=== PATIENT | female | born 1985 | race American Indian/Alaskan Native ===

== ENCOUNTER 2020-11-03 17:11 | Outpatient (CLI) | payer OTHER ==
--- NOTE | 2020-11-03 18:26 | Ultrasound Report ---
ULTRASOUND BIOPHYSICAL PROFILE INDICATION / CLINICAL INFORMATION: well being. COMPARISON: None available. FINDINGS: BREATHING MOVEMENT = 2 GROSS BODY MOVEMENT = 2 TONE = 2 QUALITATIVE AMNIOTIC FLUID VOLUME = 2 TOTAL BIOPHYSICAL SCORE = 09/20 AMNIOTIC FLUID INDEX (cm) = 22.6 PRESENTATION: Cephalic. HEART RATE (beats per minute): 187 IMPRESSION: 1. biophysical profile = 09/20 Signer Name: Josué Floyd MD Signed: 11/03/2020 6:21 PM Workstation Name: [employer]
[2020-11-03 18:34] VITALS: BP 123/78
--- NOTE | 2020-11-03 18:35 | Ultrasound Report ---
ULTRASOUND BIOPHYSICAL PROFILE INDICATION / CLINICAL INFORMATION: well being. COMPARISON: None available. FINDINGS: BREATHING MOVEMENT = 2 GROSS BODY MOVEMENT = 2 TONE = 2 QUALITATIVE AMNIOTIC FLUID VOLUME = 2 TOTAL BIOPHYSICAL SCORE = 09/20 AMNIOTIC FLUID INDEX (cm) = 22.6 PRESENTATION: Cephalic. HEART RATE (beats per minute): 187 IMPRESSION: 1. biophysical profile = 09/20 Signer Name: Josué Floyd MD Signed: 11/03/2020 6:31 PM Workstation Name: [employer]
[2020-11-03 18:56] LABS: Bilirubin,Urine NEG (Negative); Blood,Urine NEG (Negative); Color,Urine Amber (Yellow); Mucus,Urine FEW /HPF
== END 2020-11-03 19:08 | disposition home or self-care (01) ==
LOC: TRG 17:11 → APU 17:13 → TRG 19:08
PROVIDERS: ATTEND Obstetrics & Gynecology
DX: Z34.93 Encounter for supervision of normal pregnancy, unspecified, third trimester (principal); Z3A.40 40 weeks gestation of pregnancy
CPT/HCPCS: 59025; 76815; 76819; 81001

== ENCOUNTER 2020-11-06 08:28 | Inpatient (IN) | payer OTHER ==
[2020-11-06] MEDS ORDERED: LACTATED RINGERS 1,000 ML IV ONE (08:48)
[2020-11-06] MEDS ORDERED: LIDOCAINE (2%) 20 MG/1 ML VIAL 20 ML MDV INFILTRATI NR (09:59)
[2020-11-06 10:25] LABS: Hematocrit 34.5 % (30.3-42.9); Hemoglobin 11.7 gm/dl (10.1-14.3); Mean Corpuscular HGB Conc 34 % (30-34); Mean Corpuscular Volume 90 fl (79-97); Platelet Count 197 K/mm3 (140-440); Red Blood Count 3.82 M/mm3 (3.65-5.03)
[2020-11-06] MEDS ORDERED: OXYTOCIN DRIP 30 UNITS/500 ML BAG IV SCH ×4 (11:00→16:00)
[2020-11-06] MEDS ORDERED: ePHEDrine SULFATE 50 MG/1 ML INJ IV PRN ×3 (11:00→21:16)
[2020-11-06] MEDS ORDERED: OXYTOCIN 10 UNIT/1 ML INJ IM PRN ×2 (11:00→15:19)
[2020-11-06] MEDS ORDERED: LOPERAMIDE 2 MG CAP PO PRN (11:00)
[2020-11-06] MEDS ORDERED: TERBUTALINE 1 MG/1 ML INJ SUB-Q PRN ×2 (11:00→15:19)
[2020-11-06] MEDS ORDERED: CARBOPROST TROMETHAMINE 250 MCG/1 ML INJ IM PRN (11:00)
[2020-11-06] MEDS ORDERED: miSOPROStol 200 MCG TAB PR PRN ×2 (11:30→15:19)
[2020-11-06] MEDS ORDERED: METHYLERGONOVINE MALEATE 0.2 MG/ML VIAL IM PRN ×2 (11:30→15:19)
[2020-11-06] MEDS ORDERED: fentaNYL 100 MCG/2 ML INJ IV PRN (11:30)
[2020-11-06] MEDS ORDERED: ACETAMINOPHEN 325 MG TAB PO PRN (11:30)
[2020-11-06] MEDS ORDERED: BUTORPHANOL 2 MG/1 ML INJ IV PRN (11:30)
[2020-11-06] MEDS ORDERED: MINERAL OIL 30 ML ORAL LIQD PO PRN ×2 (15:19→22:00)
[2020-11-06] MEDS ORDERED: LACTATED RINGERS 1,000 ML IV SCH (16:30)
[2020-11-06] MEDS: LACTATED RINGERS 1,000 ML IV SCH ×2 (17:00→21:53)
[2020-11-06] MEDS ORDERED: AMPICILLIN/NS 2 GM/100 ML 2 GM/100 ML BAG IV ONE (18:59)
--- NOTE | 2020-11-06 20:53 | History and Physical Report ---
History of Present Illness Date of examination: 11/06/20 Date of admission: 11/06/20 16:18 Chief complaint: ROM at 3am today History of present illness: by . 40+4 wks. Patient chose to try for a if possible. Past History Past Surgical History: section - Obstetrical History Expected Date of Delivery: 11/02/20 Actual Gestation: 40 Week(s) 4 Day(s) : 2 Medications and Allergies Allergies Allergy/AdvReac Type Severity Reaction Status Date / Time No Known Allergies Allergy Verified 11/06/20 08:45 Home Medications Medication Instructions Recorded Confirmed Last Taken Type No.137/Iron/Folic Acd 1 tab PO DAILY 11/06/20 11/06/20 11/05/20 History [[facility] Vit[facility] Tablet] Active Meds: Active Medications Acetaminophen (Acetaminophen 325 Mg Tab) 650 mg PO Q4H PRN PRN Reason: Pain, Mild (1-3) Butorphanol Tartrate (Butorphanol 2 Mg/1 Ml Inj) 1 mg IV Q2H PRN PRN Reason: Pain, Moderate(4-6) LABOR PAIN Carboprost Tromethamine (Carboprost Tromethamine 250 Mcg/1 Ml Inj) 250 mcg IM ONCE PRN PRN Reason: Uterine Bleeding Stop: 11/07/20 10:59 Ephedrine Sulfate (Ephedrine Sulfate 50 Mg/1 Ml Inj) 10 mg IV Q2M PRN PRN Reason: Hypotension Fentanyl (Fentanyl 100 Mcg/2 Ml Inj) 100 mcg IV Q2H PRN PRN Reason: Pain,Severe (7-10) LABOR PAIN Oxytocin/Sodium Chloride (Pitocin/Ns 30 Unit/500ml) 30 units in 500 mls @ 2 mls/hr IV TITR KRISTYN; Protocol Last Titration: 11/06/20 18:00 Dose: 4 ml/hr, 4 mls/hr Documented by: Lactated Ringer's (Lactated Ringers) 1,000 mls @ 125 mls/hr IV DIRECT KRISTYN Last Admin: 11/06/20 17:00 Dose: 125 mls/hr Documented by: Oxytocin/Sodium Chloride (Pitocin/Ns 30 Unit/500ml) 30 units in 500 mls @ 40 mls/hr IV TITR KRISTYN; Protocol Oxytocin/Sodium Chloride (Pitocin/Ns 30 Unit/500ml) 30 units in 500 mls @ 2 mls/hr IV TITR KRISTYN; Protocol Lactated Ringer's (Lactated Ringers) 1,000 mls @ 125 mls/hr IV DIRECT KRISTYN Oxytocin/Sodium Chloride (Pitocin/Ns 30 Unit/500ml) 30 units in 500 mls @ 40 mls/hr IV TITR KRISTYN; Protocol Ampicillin Sodium (Ampicillin/Ns 1 Gm/50 Ml) 1 gm in 50 mls @ 100 mls/hr IV Q4H KRISTYN; Protocol Loperamide HCl (Loperamide 2 Mg Cap) 2 mg PO ONCE PRN PRN Reason: give with Hemabate Stop: 11/07/20 10:59 Methylergonovine Maleate (Methylergonovine Maleate 0.2 Mg/Ml Vial) 0.2 mg IM ONCE PRN PRN Reason: Uterine Bleeding Stop: 11/07/20 11:29 Methylergonovine Maleate (Methylergonovine Maleate 0.2 Mg/Ml Vial) 0.2 mg IM ONCE PRN PRN Reason: Uterine Bleeding Mineral Oil (Mineral Oil 30 Ml Oral Liqd) 30 ml PO QHS PRN PRN Reason: Constipation Misoprostol (Misoprostol 200 Mcg Tab) 800 mcg NH ONCE PRN PRN Reason: Uterine Bleeding Stop: 11/07/20 11:29 Misoprostol (Misoprostol 200 Mcg Tab) 800 mcg NH ONCE PRN PRN Reason: Uterine Bleeding Oxytocin (Oxytocin 10 Unit/1 Ml Inj) 10 unit IM ONCE PRN PRN Reason: Uterine Bleeding Stop: 11/07/20 10:59 Oxytocin (Oxytocin 10 Unit/1 Ml Inj) 10 unit IM ONCE PRN PRN Reason: Uterine Bleeding Terbutaline Sulfate (Terbutaline 1 Mg/1 Ml Inj) 0.25 mg SUB-Q ONCE PRN PRN Reason: Hyperstimulation/Hypertonicity Review of Systems All systems: negative - Vital Signs Vital signs: Vital Signs Pulse Pulse Ox 120 H 97 11/06/20 08:40 11/06/20 08:40 Temp Pulse Resp BP Pulse Ox 98.1 F 73 20 135/79 98 11/06/20 17:56 11/06/20 20:46 11/06/20 17:56 11/06/20 20:40 11/06/20 20:46 - Physical Exam Lungs: Positive: Normal air movement Abdomen: Positive: normal appearance. Negative: tenderness Extremities: Positive: normal Deep Tendon Reflex Grade: Normal +2 - Obstetrical FHR: category 1 Cervical Dilatation: 0 Cervical Effacement Percentage: 40 station: 0-3 Uterine Contraction Pattern: Irregular Results Result Diagrams: 11/06/20 10:10 Abnormal lab results 11/06/20 Range/Units 08:56 Membranes Rupture Positive A (Negative) All other labs normal. Assessment and Plan - Patient Problems (1) Desires (vaginal after ) trial Current Visit: Yes Status: Acute Plan to address problem: , attemp, elective sections were fully discussed with patient during visits. Concerns of ruptured uterus and its sequelae werefully discussed. Patient was further reassured of comparative certainty of outcome of a repeat vs the risks and uncertainty of the process of . The ethical principle of autonomy, the patient was told, allowed me to do only as she consented to. She was unwavering in her choice to try for a . (2) Previous delivery affecting Current Visit: Yes Status: Acute (3) Post-term , 40-42 weeks of gestation Current Visit: Yes Status: Acute (4) SROM (spontaneous rupture of membranes) Current Visit: Yes Status: Acute (5) Delayed delivery after SROM (spontaneous rupture of membranes) Current Visit: Yes Status: Acute Plan to address problem: Started on ampicillin due to GBS status. On low dose pitocin. Will allow for contactions as long as there were no indications of or maternal intolerance, chorioamnionitis, emerging concerns re uterine scar integrity, non progression of labor.
[2020-11-06] MEDS ORDERED: NALOXONE 2 MG/2 ML INJ IV PRN (21:16)
--- NOTE | 2020-11-06 21:20 | Anesthesia Consultation ---
Anesthesia Consult and Med Hx Date of service: 11/06/20 - Airway Anesthetic Teeth Evaluation: Poor ROM Head & Neck: Adequate Mental/Hyoid Distance: Adequate Mallampati Class: Class II Intubation Access Assessment: Probably Good - Pulmonary Exam CTA: Yes - Cardiac Exam Cardiac Exam: RRR - Pre-Operative Health Status ASA Pre-Surgery Classification: ASA2 Proposed Anesthetic Plan: Epidural - Pulmonary Hx Smoking: No Hx Asthma: No Hx Respiratory Symptoms: No SOB: No COPD: No Home Oxygen Therapy: No Hx Pneumonia: No Hx Sleep Apnea: No - Cardiovascular System Hx Hypertension: No Hx Coronary Artery Disease: No Hx Heart Attack/AMI: No Hx Angina: No Hx Percutaneous Transluminal Coronary Angioplasty (PTCA): No Hx Cardia Arrhythmia: No Hx Pacemaker: No Hx Internal Defibrillator: No Hx Valvular Heart Disease: No Hx Heart Murmur: No Hx Peripheral Vascular Disease: No - Central Nervous System Hx Neuromuscular Disorder: No Hx Seizures: No CVA: No Hx Back Pain: Yes Hx Psychiatric Problems: No - Gastrointestinal Hx Ulcer: No Hx Gastroesophageal Reflux Disease: Yes - Endocrine Hx Renal Disease: No Hx End Stage Renal Disease: No Hx Cirrhosis: No Hx Liver Disease: No Hx Insulin Dependent Diabetes: No Hx Non-Insulin Dependent Diabetes: No Hx Thyroid Disease: No Hx Hypothyroidism: No Hx Hyperthyroidism: No - Hematic Hx Anemia: No Hx Sickle Cell Disease: No - Other Systems Hx Alcohol Use: No Hx Substance Use: No Hx Cancer: No Hx Obesity: Yes
[2020-11-06] MEDS: AMPICILLIN/NS 1 GM/50 ML 1 GM/50 ML BAG IV SCH (22:00)
[2020-11-06] MEDS: fentaNYL-BUPIV 2 MCG/ML-0.125% 200 MCG/100 ML BAG EPIDURAL SCH (22:00)
--- NOTE | 2020-11-06 22:22 | Progress Note ---
Labor Epidural - Labor Epidural Start Time: 21:29 Stop Time: 21:43 Performed by:: AYLA MILLS Procedure: Patient is requesting a laboring epidural for laboring pain. Patient IDed, H&P reviewed, all questions and concerns were answered, and consent was signed. Timeout was performed at bedside. Patient in sitting position. Sterile prep and drape was performed. [3] ml of 1% lidocaine skin wheal at L[3]- L [4]. 18- gauge [place] epidural needle was advanced to loss of resistance with saline technique 7cm. Negative CSF negative blood. Epidural catheter advanced to [10] centimeters. [NEGATIVE] Aspiration [NEGATIVE] test dose. Sterile dressing applied. Patient tolerated procedure.
[2020-11-07] MEDS: AMPICILLIN/NS 1 GM/50 ML 1 GM/50 ML BAG IV SCH ×3 (02:50→09:43)
[2020-11-07] MEDS: LACTATED RINGERS 1,000 ML IV SCH (06:14)
[2020-11-07] MEDS: fentaNYL-BUPIV 2 MCG/ML-0.125% 200 MCG/100 ML BAG EPIDURAL SCH (10:29)
--- NOTE | 2020-11-07 11:57 | Event Note ---
Date: 11/07/20 Patient stable. heart tracing showing some variability. Normal vulva vagina. Cervix 80% moderate to soft consistency. Os 2cm. Station 0- 1. Tinge of olive green noted in amni fluid.
[2020-11-07] MEDS ORDERED: BICITRA ORAL LIQD 30ML PO ONE (12:42)
[2020-11-07] MEDS ORDERED: METOCLOPRAMIDE 10 MG/2 ML INJ IV ONE (12:42)
[2020-11-07] MEDS ORDERED: FAMOTIDINE 20 MG/2 ML INJ IV ONE (12:42)
[2020-11-07] MEDS ORDERED: LACTATED RINGERS 1,000 ML IV SCH (12:45)
[2020-11-07] MEDS ORDERED: ceFAZolin/Water 2 GM/20 ML 2 GM/20 ML SYRINGE IV NR (13:00)
[2020-11-07] MEDS ORDERED: OXYTOCIN DRIP 30 UNITS/500 ML BAG IV SCH ×2 (13:00→16:00)
[2020-11-07] MEDS ORDERED: HYDROmorphone 1 MG/1 ML INJ IV PRN (13:27)
[2020-11-07] MEDS ORDERED: NALOXONE 0.4 MG/1 ML INJ IV PRN ×2 (13:27→15:48)
[2020-11-07] MEDS ORDERED: MORPHINE 4 MG/1 ML INJ IV PRN ×2 (13:27→15:50)
[2020-11-07] MEDS ORDERED: ONDANSETRON 4 MG/2 ML INJ IV PRN ×2 (13:27→15:50)
--- NOTE | 2020-11-07 13:27 | Anesthesia Day of Surgery ---
Anesthesia Day of Surgery - Day of Surgery Patient Examined: Yes Patient H&P Reviewed: Yes Patient is NPO: Yes Beta Blockers: No Cardiac Clearance: No Pulmonary Clearance: No Erasto's Test: Negative
[2020-11-07] MEDS ORDERED: LIDOCAINE 2%/EPINEPHRINE 1:200,000 VIAL (20 ML) INFILTRATI ONE (13:43)
[2020-11-07] MEDS ORDERED: ceFAZolin/STERILE WATER 2 GM/20 ML SYRINGE IV ONE (14:26)
[2020-11-07] MEDS ORDERED: SODIUM CHLORIDE 0.9% IRR 1,500 ML BOTTLE IR ONE (14:30)
[2020-11-07] MEDS ORDERED: WATER FOR IRRIG STERILE 1,500 ML BOTTLE IR ONE (14:30)
[2020-11-07] MEDS ORDERED: dexAMETHasone 20 MG/5 ML VIAL ONE (14:46)
[2020-11-07] MEDS ORDERED: BUPIVACAINE/PF (0.25%) 2.5 MG/ML 30 ML VIAL INFILTRATI ONE ×2 (14:46)
[2020-11-07] MEDS ORDERED: LANOLIN/ZINC/DIMETHICONE (LANSINOH) 7 GM TP PRN (15:48)
[2020-11-07] MEDS ORDERED: WITCH HAZEL/ GLYCERIN PAD TP PRN (15:48)
[2020-11-07] MEDS ORDERED: IBUPROFEN 800 MG TAB PO PRN (15:50)
[2020-11-07] MEDS ORDERED: IBUPROFEN 600 MG TAB PO PRN (15:50)
[2020-11-07] MEDS ORDERED: KETOROLAC 30 MG/1 ML INJ IV PRN ×2 (15:50)
[2020-11-07] MEDS ORDERED: MORPHINE 2 MG/1 ML INJ IV PRN (15:50)
[2020-11-07] MEDS ORDERED: ACETAMINOPHEN 325 MG TAB PO PRN (15:50)
[2020-11-07] MEDS ORDERED: ceFAZolin/NS 1 GM/50 ML 1 GM/50 ML BAG IV SCH (16:00)
--- NOTE | 2020-11-07 16:00 | Operative Report ---
Operative Report Operative Report: Date of surgery: November 07, 2020 Preoperative diagnoses: 40 weeks and 5 days gestation, previous section, failed trial, Postoperative diagnoses: The same plus lower uterine dehiscence, peritoneal adhesions. Operation: Lower segment transverse delivery, lysis of adhesions Surgeon:Ghislaine Thayer MD Contract Serviceman: Stefanie Forbes CRNA Anesthesia: Epidural block Estimated blood loss: 924 mL Complications: None Findings: Upon entry into the peritoneal cavity the head with its dark hair was seen through the serosal covering and the left lateral aspect of the lower uterine segment. The female was in cephalic presentation. weight 7 pounds 7 ounces. scores 8/9. The amniotic fluid was heavily stained with fresh meconium. Both ovaries and fallopian tubes were grossly normal. The uterus was otherwise unremarkable except for the described dehiscence of the lower segment. The inferior aspects of the greater omentum were adherent to the anterior parietal peritoneum below the level. Procedure in detail: The patient was taken to the operating room and given a spinal block. Patient was placed in the straight supine position and a Manley catheter was inserted. The patient was prepped in the abdomen. The drapes were placed. A timeout was done. With the go ahead from the telecom coordinator, a Pfannenstiel incision was made. This incision was carried across the subcutaneous layer to the fascia which was also divided transversely. The recti abdominis muscle flaps were stripped from the fascia using a combination of blunt and sharp dissections. The muscles were in the midline to gain access to the anterior parietal peritoneum which was divided after excluding any underlying viscera. The access to the peritoneal cavity was then widened by manual stretching. The bladder blade was applied. The utero vesicle peritoneal flap was divided transversely allowing the bladder to be displaced caudally. The uterine incision was placed in the lower segment transversely. The uterine incision was carried to the decidual layer. The uterine incision was extended on both sides using the bandage scissors. The amniotic sac was ruptured with clear fluid. The head was lifted out of the false maternal pelvis and delivered through the incision using fundal pressure. The airways were bulb suctioned beginning with the mouth. Continuing fundal pressure combined with traction on the mandibular processes of the jaw delivered the rest of the baby. The umbilical cord was double clamped and divided. The baby was carefully transferred to the pediatric team. The placenta was manually removed from the uterine cavity. The uterine cavity was explored and was empty of any placental remnants. The uterine incision was repaired in 2 layers with #1 Vicryl. The surgical line on the uterus was hemostatic. The omental adhesions were divided in between 2 pairs of Kellys forceps and tied off with #1 Vicryl. Hemostasis was satisfactory Blood and clots were cleared from the peritoneal cavity. The anterior parietal peritoneum was repaired with #1 Vicryl. The fascia was repaired with #1 Vicryl. The subcutaneous layer was made hemostatic using the Bovie before the skin was closed subcuticularly with 4-0 Vicryl. There were no complications. The estimated blood loss was 924 mL. All sponges and instrument counts were correct. Patient was safely transferred to the recovery room.
--- NOTE | 2020-11-07 16:08 | Progress Note ---
Regional Anesthesia Block - Regional Anesthesia Block Start Time: 15:43 Stop Time: 15:47 Performed By:: AYLA MILLS Procedure: Patient consented for TAP block for post surgical pain management. Patient identified, monitors placed, and time out performed. TAP identified bilaterally via ultrasound. Skin prepped bilaterally with [chlorhexidine] and [22g stimuplex] needle advanced to the TAP. [Marcaine 0.25% 30ml] injected under ultrasound guidance on the [left] side. [Marcaine 0.25% 30ml] injected under ultrasound guidance on the [right] side. Negative aspiration every 5mL, No change in heart rate or rhythm. Patient tolerated the procedure well. No apparent complications seen.
[2020-11-07] MEDS ORDERED: D5W/LACTATED RINGERS 1,000 ML IV ONE (19:05)
[2020-11-07] MEDS ORDERED: D5W/LACTATED RINGERS 1,000 ML IV SCH (20:00)
[2020-11-08] MEDS: HYDROcodone/ACETAMINOPHEN 5-325 MG TAB PO PRN ×3 (03:48→22:03)
[2020-11-08] MEDS ORDERED: ceFAZolin/NS 1 GM/50 ML 1 GM/50 ML BAG IV SCH (04:30)
[2020-11-08 05:51] LABS: Hematocrit 33.3 % (30.3-42.9); Hemoglobin 11.3 gm/dl (10.1-14.3)
[2020-11-08] MEDS: PRENATAL VIT27-FE FUMARATE-FOLIC ACID VIT TAB PO SCH (13:11)
--- NOTE | 2020-11-08 13:25 | Post Anesthesia Evaluation ---
- Post Anesthesia Evaluation Patient Participated: Yes Airway Patent: Yes Stable Respiratory Function: Yes Nausea/Vomiting: No Temp > 96.8F: Yes Pain Manageable: Yes Adequeate Hydration: Yes Anesthesia Complications: No Block Receding Appropriately: Yes Patient on Ventilator: No
[2020-11-08] MEDS ORDERED: MAGNESIUM HYDROXIDE (MOM) ORAL LIQD UDC PO PRN (22:08)
[2020-11-08] MEDS: SIMETHICONE 80 MG CHEW TAB PO PRN (22:27)
[2020-11-08] MEDS: DOCUSATE SODIUM 100 MG CAP PO SCH (22:27)
[2020-11-09] MEDS: SIMETHICONE 80 MG CHEW TAB PO PRN (03:58)
[2020-11-09] MEDS ORDERED: TETANUS,DIPH,PERTUSS(ACELL) VACCINE 0.5 ML SYRINGE IM ONE (06:00)
--- NOTE | 2020-11-09 08:17 | Event Note ---
Date: 11/07/20 Patient's condition was reviewed at 1230HRS. Patient anxious. Oxana q1- 2mins. Fetus tracing flat to minimal variability. Cervix 3cm. 80% effaced. 0-1 station. Light meconium. Situation presented to patient: not in active labor and fetus showing cause for concern. Patient made her decision to stop the trial and deliver by .
--- NOTE | 2020-11-09 08:20 | Progress Note ---
Assessment and Plan - Patient Problems (1) Desires (vaginal after ) trial Current Visit: Yes Status: Acute (2) Previous delivery affecting Current Visit: Yes Status: Acute (3) Post-term , 40-42 weeks of gestation Current Visit: Yes Status: Acute (4) SROM (spontaneous rupture of membranes) Current Visit: Yes Status: Acute (5) Delayed delivery after SROM (spontaneous rupture of membranes) Current Visit: Yes Status: Acute (6) Status post delivery Current Visit: Yes Status: Acute Plan to address problem: Stable. Observation to continue. Subjective - Subjective Date of service: 11/08/20 Principal diagnosis: Status post day 1. Interval history: by . 40+4 wks. Patient chose to try for a if possible. Patient reports: appetite normal, voiding normally, pain well controlled, ambulating normally [place]: doing well Objective - Vital Signs Latest vital signs: Vital Signs Temp Pulse Resp BP BP Pulse Ox Pulse Ox 11/08/20 23:42 98.3 F 80 18 118/76 97 11/08/20 23:03 18 11/08/20 22:03 20 11/08/20 20:00 100 11/08/20 17:53 99 11/08/20 16:53 98.0 F 99 H 18 139/84 94 11/08/20 15:56 99 11/08/20 14:00 99 11/08/20 12:04 98.4 F 78 18 138/87 99 11/08/20 10:15 99 11/08/20 08:39 99 Intake and Output 11/08/20 11/09/20 11/09/20 23:59 07:59 15:59 Intake Total 600 240 Balance 600 240 Intake: Oral 360 Intake, Free Water 240 240 Other: Total, Intake Amount 240 # Voids Void 1 1 - Exam Breasts: Present: deferred Lungs: Present: Normal air movement Abdomen: Present: normal appearance, soft, normal bowel sounds Uterus: Present: normal, firm Extremities: Present: normal Deep Tendon Reflex Grade: Normal +2 Incision: Present: normal, dry, intact
--- NOTE | 2020-11-09 08:22 | Progress Note ---
Assessment and Plan - Patient Problems (1) Desires (vaginal after ) trial Current Visit: Yes Status: Acute (2) Previous delivery affecting Current Visit: Yes Status: Acute (3) Post-term , 40-42 weeks of gestation Current Visit: Yes Status: Acute (4) SROM (spontaneous rupture of membranes) Current Visit: Yes Status: Acute (5) Delayed delivery after SROM (spontaneous rupture of membranes) Current Visit: Yes Status: Acute (6) Status post delivery Current Visit: Yes Status: Acute Plan to address problem: Tricia platt and wei home this evening if all ok. Subjective - Subjective Date of service: 11/09/20 Principal diagnosis: Status post day 2. Interval history: by . 40+4 wks. Patient chose to try for a if possible. Patient reports: appetite normal, voiding normally, ambulating normally Objective - Vital Signs Latest vital signs: Vital Signs Temp Pulse Resp BP BP Pulse Ox Pulse Ox 11/08/20 23:42 98.3 F 80 18 118/76 97 11/08/20 23:03 18 11/08/20 22:03 20 11/08/20 20:00 100 11/08/20 17:53 99 11/08/20 16:53 98.0 F 99 H 18 139/84 94 11/08/20 15:56 99 11/08/20 14:00 99 11/08/20 12:04 98.4 F 78 18 138/87 99 11/08/20 10:15 99 11/08/20 08:39 99 Intake and Output 11/08/20 11/09/20 11/09/20 23:59 07:59 15:59 Intake Total 600 240 Balance 600 240 Intake: Oral 360 Intake, Free Water 240 240 Other: Total, Intake Amount 240 # Voids Void 1 1 - Exam Lungs: Present: Normal air movement Abdomen: Present: normal appearance, soft, normal bowel sounds Uterus: Present: normal, firm Extremities: Present: normal Deep Tendon Reflex Grade: Normal +2 Incision: Present: normal, dry, intact
--- NOTE | 2020-11-09 08:48 | Discharge Summary ---
Providers - Providers Date of Admission: 11/06/20 16:18 Date of discharge: 11/09/20 Attending physician: VINCENT DIAZ MD Primary care physician: VINCENT DIAZ MD Hospitalization Reason for admission: rupture of membranes Delivery: Procedure: section Episiotomy: none Laceration: none Incision: normal, dry, intact Other procedures: none complications: none Discharge diagnosis: IUP at term delivered [place] baby: female Condition at discharge: Good Disposition: 01 HOME / SELF CARE / HOMELESS - Discharge Diagnoses (1) Desires (vaginal after ) trial Status: Resolved (2) Previous delivery affecting Status: Resolved (3) Post-term , 40-42 weeks of gestation Status: Resolved (4) SROM (spontaneous rupture of membranes) Status: Resolved (5) Delayed delivery after SROM (spontaneous rupture of membranes) Status: Resolved (6) Status post delivery Status: Acute Plan - Provider Discharge Summary Activity: routine, no sex for 6 weeks, no heavy lifting 4 weeks, no strenuous exercise Diet: routine Instructions: routine (Patient's spouse/partner topick up script for norco 5 from the office.) Additional instructions: [] Smoking cessation referral if applicable(refer to patient education folder for contact #) [] Refer to [facility] Booklet Call your doctor immediately for: * Fever > 100.5 * Heavy vaginal bleeding ( >1 pad per hour) * Severe persistent headache * Shortness of breath * Reddened, hot, painful area to leg or breast * Drainage or odor from incision. * Keep incision clean and dry at all times and follow doctor's instructions regarding bathing/showering - Follow up plan Follow up: VINCENT DIAZ MD [Primary Care Provider] - 7 Days Forms: [facility] Discharge Summary
[2020-11-09] MEDS: PRENATAL VIT27-FE FUMARATE-FOLIC ACID VIT TAB PO SCH (09:21)
[2020-11-09] MEDS: DOCUSATE SODIUM 100 MG CAP PO SCH (09:21)
[2020-11-09] MEDS ORDERED: MEASLES, MUMPS & RUBELLA 12,500 UNIT/0.5 ML VACCINE SUB-Q ONE (10:22)
[2020-11-09 12:34] VITALS: BP 116/84
== END 2020-11-09 12:25 | disposition home or self-care (01) | DRG 765 ==
LOC: TRG 08:28 → APU 08:29 → TRG 09:59 → LD 12:33 → OBSVTOIN 16:18 → OB 11-07 18:31
PROVIDERS: ADMIT Obstetrics & Gynecology; ATTEND Obstetrics & Gynecology
PROC: 10D00Z1 Extraction of Products of Conception, Low, Open Approach (ICD-10-PCS; principal; 2020-11-07)
PROC: 3E0T3BZ Introduction of Anesthetic Agent into Peripheral Nerves and Plexi, Percutaneous Approach (ICD-10-PCS; 2020-11-07)
PROC: 3E0234Z Introduction of Serum, Toxoid and Vaccine into Muscle, Percutaneous Approach (ICD-10-PCS; 2020-11-09)
PROC: 3E0R3BZ Introduction of Anesthetic Agent into Spinal Canal, Percutaneous Approach (ICD-10-PCS; 2020-11-09)
PROC: 00HU33Z Insertion of Infusion Device into Spinal Canal, Percutaneous Approach (ICD-10-PCS; 2020-11-09)
DX: O48.0 Post-term pregnancy (principal); O63.9 Long labor, unspecified; O77.0 Labor and delivery complicated by meconium in amniotic fluid; O34.211 Maternal care for low transverse scar from previous cesarean delivery; O66.41 Failed attempted vaginal birth after previous cesarean delivery; Z3A.40 40 weeks gestation of pregnancy; Z37.0 Single live birth; Z23 Encounter for immunization; O99.62 Diseases of the digestive system complicating childbirth; K21.9 Gastro-esophageal reflux disease without esophagitis; K66.0 Peritoneal adhesions (postprocedural) (postinfection); Z20.822 Contact with and (suspected) exposure to COVID-19
CPT/HCPCS: 36415; 59025; 76815; 76819; 81001; 84112; 85014; 85018; 85027; 86592; 86850; 86900; 86901; 87591; 90707; 96360; G0378; J0290; J0690; J1100; J1885; J2270; J2590; J2765; J3490; J7120; J7121; U0003